=== PATIENT | female | born 1950 | race Caucasian/White ===

== ENCOUNTER 2023-11-23 10:23 | Outpatient (AMB) | payer OTHER, SELFPAY ==
--- NOTE | 2023-11-23 14:09 | AM.OFFWIN_ITS ---
Intake Vital Signs 11/23/23 14:12 Height 5 ft 4.5 in Weight 189 lb BMI 31.9 BP 140/70 H Blood Pressure Location Lt brachial Position Sitting Pulse 89 Pulse Source Pulse Oximeter Temp 97.8 F Temp Source Oral Pulse Oximetry (%) 98 Oxygen Delivery Method Room Air Intake Visit Reasons: [employer]/ both ears blocked (lobby masked) Intake Note: Pt is here today c/o bilateral ear blocked wit cerumen Allergies No Known Allergies Allergy (Verified 11/23/23 14:15) HPI HPI Comments History of Present Illness Details This is a 73-year-old female presenting for evaluation of bilateral cerumen impaction. Patient states she was recently treated for a right otitis media and has no pain at this time however [id number] ear drops have not resolved the wax in her ears. Patient states that her ears feel ?clogged?, right greater than left. Review of Systems Const All systems reviewed & are unremarkable except as noted in HPI and below Eyes Reports no additional complaints ENT Denies Normal hearing present and Reports other (Wax in both ears) Neuro Denies Normal hearing present Psych Reports no additional complaints Physical Exam Vital Signs: Last Vital Signs Temp 97.8 F 11/23/23 14:12 Pulse 89 11/23/23 14:12 BP 140/70 H 11/23/23 14:12 Pulse Ox 98 11/23/23 14:12 Oxygen Delivery Method Room Air 11/23/23 14:12 BMI result Body Mass Index 31.9 Const General: cooperative, healthy appearing, comfortable and no acute distress Nutritional Appearance: average body habitus Orientation/consciousness: patient oriented x3 Limitations: no limitations HEENT Head: Yes normal to inspection Ears: external ears normal and TM's normal bilaterally Face and sinus: Yes normal facial exam and No sinus tenderness Mouth: Normal oral and palatal mucosa present, lip normal, tongue normal, moist mucous membranes and No mouth trauma Teeth and gingiva: dentition normal and gingiva normal Throat: Yes posterior oropharynx normal Neuro General: patient oriented x3 Cranial nerves: No Normal hearing present Psych Appearance: grossly normal Mental Status: mental status grossly normal Insight: Good insight present (Psych) Judgement: Good judgement present (Psych) Assessment & Plan Assessment & Plan (1) Cerumen impaction: Code(s): H61.20 - Impacted cerumen, unspecified ear Qualifiers: Laterality: bilateral Qualified Code(s): H61.23 - Impacted cerumen, bilateral Plan: No further treatment warranted at this time. Coding Level of Care Code New Pt Level 3 (88062) Diagnoses Bilateral impacted cerumen H61.23 Laterality: bilateral Time Spent (min) 35
[2023-11-23 14:12] VITALS: BP 140/70; PULSE 89; TEMP 36.6; O2SAT 98; BMI 31.9
== END 2023-11-23 14:50 | disposition home or self-care (01) ==
DX: H61.23 Impacted cerumen, bilateral (principal)
CPT/HCPCS: 99051; 99203